=== PATIENT | female | born 1995 | race Caucasian/White ===

== ENCOUNTER 2016-10-04 20:37 | Emergency (ER) | payer MEDICAID ==
[~2016-10-04] VITALS: Ht 154.9 cm; Wt 82.8 kg
[2016-10-04 20:46] VITALS: BP 151/77
--- NOTE | 2016-10-04 23:55 | NUR ---
21 Y/O HERE C/O COUGH X 1 WK. STATES HAD FEVER OF 101 F A FEW DAYS AGO BUT NOT ANY MORE. STATES SHE IS SOB, O2 SAT 98 % ROOM AIR. BILATERAL UPPER/ MIDDLE SLIGHTLY WHEEZES. NO NASAL FLARING PRESENT. RT AND ER MD NOTIFIED.
--- NOTE | 2016-10-05 00:08 | NUR ---
MARTHA HAM AT BEDSIDE EVALUATING PT.
[2016-10-05] MEDS ORDERED: ALBUTEROL 0.083% 2.5 MG/3 ML NEBU INH ONE ×2 (00:10→00:35)
--- NOTE | 2016-10-05 00:15 | NUR ---
RT AT BED SIDE FOR BREATHING TX.
--- NOTE | 2016-10-05 01:00 | NUR ---
PT HR JUMPED FROM 89 TO 124. STOPPED TX AND NOTIFIED FERNANDA THOMPSON.
[2016-10-05 01:15] VITALS: BP 126/75
== END 2016-10-05 01:24 | disposition home or self-care (01) ==
LOC: MED 20:37
DX: J45.909 Unspecified asthma, uncomplicated (principal)
CPT/HCPCS: 71010; 81002; 81025; 94640; 94664; 99284; J7613